=== PATIENT | female | born 1990 | race African-American/Black ===

== ENCOUNTER 2018-08-24 01:05 | Emergency (ER) | payer SELFPAY ==
[~2018-08-24] VITALS: Ht 167.6 cm; Wt 59.0 kg
--- NOTE | 2018-08-24 01:15 | NUR ---
PT BIBSELF C/O SOB X2HR [employer]ESS[employer]OM [employer]. PT ALSO C/O NONPRODUCTIVE COUGH. PT HAS HX OF ASTHMA, BUT DOES NOT HAVE INHALER. PT AAOX4. NOTED TACHYPNEA. PT O2 SAT 90% ON ROOM AIR, PLACED ON 4L MD CLEMENCIA AWARE. PT PLACED ON MONITOR, WILL CONTINUE TO MONITOR.
[2018-08-24] MEDS ORDERED: predniSONE 20 MG TABLET ONE (02:08)
[2018-08-24] MEDS ORDERED: ALBUTEROL FS 2.5 MG/3 ML VIAL.NEB ONE (02:11)
[2018-08-24] MEDS ORDERED: IPRATROPIUM NEB FS 0.5 MG/2.5 ML AMPUL.NEB ONE (02:11)
--- NOTE | 2018-08-24 02:15 | NUR ---
RT AT BEDSIDE FOR BREATHING TREATMENT
[2018-08-24] MEDS ORDERED: IPRATROPIUM NEB FS 0.5 MG/2.5 ML AMPUL.NEB NEB ONE (02:30)
[2018-08-24] MEDS ORDERED: predniSONE 20 MG TABLET PO ONE (02:30)
[2018-08-24] MEDS ORDERED: ALBUTEROL FS 2.5 MG/0.5 ML VIAL.NEB NEB ONE (02:30)
[2018-08-24 03:03] VITALS: BP 128/74
--- NOTE | 2018-08-24 03:03 | NUR ---
Patient discharged to home in stable condition. Written and verbal after care instructions given. Patient verbalizes understanding of instruction. Pt ambulatory with a steady gait
== END 2018-08-24 03:04 | disposition home or self-care (01) ==
LOC: ER 01:07
DX: J45.909 Unspecified asthma, uncomplicated (principal); F17.200 Nicotine dependence, unspecified, uncomplicated; Z60.2 Problems related to living alone
CPT/HCPCS: 94640; 99283; 99406; J7512